=== PATIENT | male | born 2005 | race Caucasian/White ===

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

== ENCOUNTER 2024-11-18 21:28 | Emergency (ER) | payer OTHER, SELFPAY ==
[2024-11-18 21:47] VITALS: BP 111/62; PULSE 70; RESP 20; TEMP 36.4; O2SAT 94
[2024-11-18 21:52] VITALS: BP 142/74; PULSE 92; O2SAT 98
--- NOTE | 2024-11-18 21:52 | ED_ITS ---
HPI - Alcohol General Chief Complaint: ETOH/Substance Use Stated Complaint: ETOH Time Seen by Provider: 11/18/24 21:46 Source: patient and EMS Mode of arrival: EMS Limitations: other History of Present Illness ED Provider: Dr. Christine Jackson HPI narrative: Patient comes to the emergency room complaining via ambulance. Is unable to give significant history, patient very nauseous, vomiting, intoxicated with alcohol. EMS explains that the patient was celebrating with some friends that he recently returned to the [place] after being [place]. Patient had too much alcohol, denies any drug abuse. Patient denies any falls or injuries. Related Data Previous Rx's ?Medication ?Instructions ?Recorded ibuprofen 400 mg tablet 400 mg PO Q6H PRN pain #28 t abs 03/11/21 Allergies Allergy/AdvReac Type Severity Reaction Status Date / Time SEASONAL ALLERGIES Allergy Intermediate RUNNY NOSE Uncoded 11/18/24 22:13 WATERY EYES COUGH Review of Systems 2 Review of Systems: Yes Other (Too intoxicated to give any history) [facility] Past Medical History Medical History No pertinent past medical history Physical Exam ED Exam Exam: Appearance: Alert. Actively vomiting, intoxicated Eyes: Pupils equal, round and reactive to light. ENT: Pharynx normal. Neck: Normal inspection. Neck supple. No lymph nodes noted. No crepitus CVS: Normal heart rate and rhythm. Pulses normal. Normal S1 and S2 Respiratory: No respiratory distress. Breath sounds normal. No Wheezing. No rales Abdomen: Soft and nontender. No rigidity. No distention. Skin: Skin warm and dry. Normal skin color. Normal skin turgor. Extremities: No lower extremity edema. No Lacerations. No Rash Neuro: Actively vomiting, intoxicated Psych: Intoxicated, calm, ovarian vomit Vital Signs: Vital Signs - 24 hr 11/18/24 21:47 11/18/24 22:02 11/18/24 22:11 Temperature 97.5 F 97.8 F Pulse Rate 70 91 56 Respiratory Rate 20 18 20 Blood Pressure 111/62 111/64 99/47 L Pulse Oximetry 94 94 96 Oxygen Delivery Method Room Air Room Air 11/19/24 04:09 Temperature 97.7 F Pulse Rate 84 Respiratory Rate 17 Blood Pressure 104/57 L Pulse Oximetry 98 Oxygen Delivery Method Room Air BMI result Body Mass Index 31.6 Course Course Course Narrative: Patient has been drinking a large amount of alcohol, patient denies drug use, denies SI or HI, denies any injuries Patient receiving his, Zofran at all of patient's labs pending. Medical Decision Making Medical Decision Making [facility] Narrative: My interpretation of labs: No significant abnormality in patient's hematology or chemistry, normal LFTs, ETOH positive at 01:43 Patient's vitals stable No longer vomiting. Physician observation At this time, 04:45, patient is awake, alert. Patient is the father came to pick him up. Patient has a sober ride. Patient's daughter feels comfortable taking him home. Patient is being discharged in stable condition. Differential Diagnosis Differential Diagnoses: The differential diagnosis associated with the presentation includes (Alcohol intoxication, polysubstance abuse) Admission/Observation Consideration of admission/observation: Escalation of care including admission/observation considered (Patient is under physician observation waiting to become more sober) Lab Data [facility] Lab Attestation statement: I reviewed the patient's lab results. 11/18/24 22:06 11/18/24 22:06 Labs: Lab Results 11/18/24 Range/Units 22:06 WBC 10.0 (4.8-10.8) X10*3/uL RBC 4.87 (4.60-5.80) X10*6/uL Hgb 13.5 L (14.0-18.0) g/dl Hct 39.9 L (42.0-52.0) % MCV 81.9 (80.0-98.0) fL MCH 27.7 (27.0-33.0) pg MCHC 33.8 (31.0-36.0) g/dl RDW 12.8 (11.0-16.0) % Plt Count 227 (160-400) X10*3/uL MPV 10.3 (9.4-12.4) fL Immature Gran % (Auto) 0.3 (0.0-0.4) % Neut % (Auto) 77.2 H (45-73) % Lymph % (Auto) 15.2 L (20-40) % Chaffee % (Auto) 6.4 (2-11) % Eos % (Auto) 0.5 (0-4) % Baso % (Auto) 0.4 (0-2) % Lymph # (Auto) 1.5 (1.2-4.9) X10*3/uL [place]affee # (Auto) 0.6 (0.1-1.2) X10*3/uL Eos # (Auto) 0.1 (0.0-0.4) X10*3/uL Baso # (Auto) 0.0 (0.0-0.2) X10*3/uL Abs Immat Gran (auto) 0.03 (0.00-0.03) X10*3/uL Absolute Neuts (auto) 7.7 (2.0-8.3) x10*3/uL Absolute Nucleated RBC 0.000 (0.0-0.012) X10*3/uL Nucleated RBC % (auto) 0.0 (0.0-0.2) /100WBC Sodium 142 (135-145) mmol/L Potassium 3.3 (3.3-5.1) mmol/L Chloride 108 (96-108) mmol/L Carbon Dioxide 23 (22-29) mmol/L Anion Gap 14 (12-20) BUN 21 H (9-16) mg/dL Creatinine 1.05 (0.5-1.4) mg/dL Estim Creat Clear Calc 131.7 Estimated GFR > 60 Random Glucose 110 (60-115) mg/dL Calcium 8.6 (8.4-10.2) mg/dL Magnesium 2.0 (1.6-2.6) mg/dL Total Bilirubin 0.2 (0.0-1.0) mg/dL Direct Bilirubin < 0.2 (0.0-0.5) mg/dL AST 69 H (5-37) U/L ALT 134 H (0-40) U/L Alkaline Phosphatase 52 (39-117) U/L Total Protein 7.1 (6.5-8.0) g/dL Albumin 4.7 (3.5-5.0) g/dL Ethyl Alcohol 143 mg/dL Medications Administered Discontinued Medications Generic Name Dose Route Start Last Admin Trade Name Freq PRN Reason Stop Dose Admin Sodium Chloride 1,000 mls @ 999 mls/hr 11/18/24 21:49 11/19/24 00:56 Ns IVCONT 11/18/24 22:49 Infused .Q1H1M ONE Infusion Ondansetron HCl 4 mg 11/18/24 21:49 11/18/24 22:09 Ondansetron Hcl 4 Mg/2 Ml Vial IVPUSH 11/18/24 21:50 4 mg ONCE ONE Administration Critical Care Time Critical Care Time Critical Care Time: Yes Total Critical Care Time: 35 Attestation: I have personally provided critical care time. Time includes review of lab data, radiology results, discussion with consultants, and monitoring for potential decompensation. Intervention performed as documented. Discharge Plan Discharge Clinical Impression: Alcoholic intoxication Patient Disposition: Home, Self-Care Instructions: Abuse of Alcohol (ED) Additional Instructions: Please follow-up with your primary care physician tomorrow. If you have any worsening or new symptoms, please return to the emergency room or call 911 Prescriptions: No Action ibuprofen 400 mg tablet 400 mg PO Q6H PRN (Reason: pain) Qty: 28 0RF Print Language: Japanese
[2024-11-18 22:02] VITALS: BP 111/64; PULSE 91; RESP 18; TEMP 36.6; O2SAT 94; BMI 37.4
[2024-11-18 22:10] LABS: MANUAL DIFF FLAG NO
[2024-11-18 22:11] VITALS: BP 99/47; PULSE 56; RESP 20; O2SAT 96; BMI 31.6
[2024-11-18 22:12] LABS: Hematocrit 39.9 % (42.0-52.0); Hemoglobin 13.5 g/dl (14.0-18.0); Imm Gran Abs Auto 0.03 X10*3/uL (0.00-0.03); Imm Gran Pct Auto 0.3 % (0.0-0.4); Lymphocytes Absolute Auto 1.5 X10*3/uL (1.2-4.9); Mean Corpuscular HGB Conc 33.8 g/dl (31.0-36.0); Mean Corpuscular Hemoglobin 27.7 pg (27.0-33.0); Mean Corpuscular Volume 81.9 fL (80.0-98.0); NRBC Abs Auto 0.000 X10*3/uL (0.0-0.012); NRBC Pct Auto 0.0 /100WBC (0.0-0.2); Platelet Count 227 X10*3/uL (160-400); Red Blood Count 4.87 X10*6/uL (4.60-5.80); White Blood Count 10.0 X10*3/uL (4.8-10.8)
[2024-11-18 22:38] LABS: Alanine Aminotransferase 134 U/L (0-40); Albumin Level 4.7 g/dL (3.5-5.0); Alkaline Phosphatase 52 U/L (39-117); Anion Gap 14 (12-20); Aspartate Amino Transferase 69 U/L (5-37); Blood Urea Nitrogen 21 mg/dL (9-16); Calcium 8.6 mg/dL (8.4-10.2); Carbon Dioxide 23 mmol/L (22-29); Chloride 108 mmol/L (96-108); Creatinine Clr Calc Pharmacy 131.7; Estimated Glomerular Filt Rate > 60; Magnesium 2.0 mg/dL (1.6-2.6); Potassium 3.3 mmol/L (3.3-5.1); Sodium 142 mmol/L (135-145); Total Protein 7.1 g/dL (6.5-8.0)
[2024-11-19 04:09] VITALS: BP 104/57; PULSE 84; RESP 17; TEMP 36.5; O2SAT 98
--- NOTE | 2024-11-19 04:23 | PC.NURSE ---
patient awake and alert. gait steady. asking when he can go home. will be dc per provider. father contacted and will call patient and ub[employer] to go home.
[2024-11-19 04:47] VITALS: BP 104/57; PULSE 84; RESP 17; TEMP 36.5; O2SAT 98
== END 2024-11-19 04:58 | disposition home or self-care (01) ==
LOC: HO.ED 11-19 04:54
PROVIDERS: Emergency Provider Emergency Medicine
DX: F10.120 Alcohol abuse with intoxication, uncomplicated (principal); Y90.6 Blood alcohol level of 120-199 mg/100 ml; R11.2 Nausea with vomiting, unspecified
CPT/HCPCS: 36415; 80048; 80076; 80307; 83735; 85025; 96361; 96374; 99284; J2405